=== PATIENT | female | born 2000 | race Hispanic/Latino ===

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

== ENCOUNTER 2020-08-25 21:19 | Emergency (ER) | payer OTHER ==
--- NOTE | 2020-08-25 22:38 | ULT ---
ULTRASOUND ABDOMEN LIMITED: (RIGHT UPPER QUADRANT) DATE: 08/25/2020 HISTORY: 19-year-old female with right upper quadrant abdominal pain FINDINGS: Gallbladder: Mildly contracted. 3 mm wall thickness, upper limits of normal. No gallstones or sludge identified. No pericholecystic fluid. Liver: Normal parenchymal echogenicity. Right kidney: No hydronephrosis. Pancreas: Obscured by shadowing from bowel gas. Common duct caliber: 2 mm. IMPRESSION: 1) No evidence of cholelithiasis. 2) pancreas not visualized.
[2020-08-25 22:57] LABS: #Basophils 0.1 thou/uL (0.0-0.2); #Eosinphils 0.4 thou/uL (0.0-0.7); #Lymphocytes 3.4 thou/uL (1.20-3.40); #Monocytes 0.6 thou/uL (0.11-0.59); #Neutrophils 3.7 thou/uL (1.40-6.50); %Eosinophils 4.4 % (0.0-10.0); %Lymphocytes 41.3 % (28.0-48.0); %Monocytes 7.6 % (0.0-4.0); %Neutrophils 45.7 % (31.0-61.0); Hemoglobin 12.2 g/dL (12.0-16.0); Mean Corpuscular HGB CONC 35.4 g/dL (32.0-36.0); Mean Corpuscular Hemoglobin 32.9 pg (25.0-35.0); Mean Platelet Volume 8.3 fL (7.4-10.4); Platelet Count 258 thou/uL (130-400); RBC Distribution Width 12.1 % (11.5-14.5); Red Blood Cell (RBC) Count 3.69 mill/uL (4.00-5.20); White Blood Cell (WBC) Count 8.1 thou/uL (4.8-10.8)
--- NOTE | 2020-08-25 23:03 | ULT ---
ULTRASOUND OBSTETRICAL LIMITED: DATE: 08/25/2020 HISTORY: 19-year-old female with right abdominal pain FINDINGS: number: goel lie: Vertex Maternal cervix: 4 cm. Closed. Placenta: Anterior. No placenta previa or abruptio placentae. Amniotic fluid volume: Subjectively normal heart rate: 152 bpm The following anatomy is visualized, with no evidence of anomalies: four-chamber heart, stomach, kidneys, cord insertion, bladder, cervical spine, thoracic spine, lumbar spine, sacrum, upper extremities, lower extremities,. biometry: Biparietal diameter (BPD): 4.9 cm 21 w 0 d Head circumference (HC): 17.9 cm 20 w 3 d Abdominal circumference (AC): 14.7 cm 20 w 0 d Femur length (FL): 3.5 cm 21 w 0 d Average ultrasound age (AUA): 20 w 4 d Estimated date of delivery (JOSEPH): 01/08/2021 Estimated weight (EFW): 354 g +/- 52 g IMPRESSION: 1) Live 2nd trimester intrauterine gestation. 2) Estimated gestational age of 20 weeks, 4 days 3) cephalic lie. 4) no complication identified.
[2020-08-25 23:13] LABS: Bilirubin Negative (Negative); Blood, Urine Negative (Negative); Clarity Clear (Clear); Glucose, Urine (Dipstick) Normal (Negative); Ketone, Urine Negative (Negative); Leukocyte Negative Leu/uL (Negative); Nitrite Negative (Negative); Protein, Urine (Dipstick) 20 mg/dL (Neg-Trace); Specific Gravity, Urine 1.028 (1.002-1.036); Urobilinogen Normal mg/dL (Less than 2)
[2020-08-25 23:20] LABS: ALT (SGPT) 16 U/L (8-55); AST (SGOT) 15 U/L (5-30); Albumin 3.5 g/dL (3.5-5.0); Alkaline Phosphatase 64 U/L (40-100); Anion Gap 11 mmol/L (10-20); BUN (Urea Nitrogen) 5 mg/dL (8.4-21.0); Bilirubin, Total 0.2 mg/dL (0.2-1.2); Calc. Creatinine Clearance 0 mL/min (70-130); Calcium 8.3 mg/dL (7.8-10.44); Carbon Dioxide 24 mmol/L (22-29); Chloride 107 mmol/L (98-107); Estimated GFR-MDRD Greater than 90; Glucose 93 mg/dL (70-105); Lipase 28 U/L (8-78); Potassium 3.7 mmol/L (3.5-5.1); Protein, Total 6.5 g/dL (6.0-8.3); Sodium 138 mmol/L (136-145)
== END 2020-08-25 23:55 | disposition home or self-care (01) ==
LOC: ERS 21:19
DX: O99.89 Other specified diseases and conditions complicating pregnancy, childbirth and the puerperium (principal); R10.11 Right upper quadrant pain; Z3A.20 20 weeks gestation of pregnancy
CPT/HCPCS: 36415; 76705; 76815; 80053; 81003; 83690; 85025; 87086

== ENCOUNTER 2020-09-06 09:37 | Outpatient (CLI) | payer OTHER ==
--- NOTE | 2020-09-06 12:05 | ULT ---
OB ULTRASOUND: HISTORY: anatomy. FINDINGS: A single live intrauterine gestation is seen with measurements corresponding to an estimated gestatio nal age of 22 weeks 1 day and JOSEPH at 01/09/2021. The estimated weight measures 473 gm or 1 pound and 1 ounce. Measurements: BPD 5.2 cm, 22 weeks 0 days HC 19.46 cm, 21 weeks 5 days AC 16.90 cm, 22 weeks 0 days FL 3.86 cm, 22 weeks 3 days heart rate measures 149 b.p.m. ROGERS measures 12.9 cm. Placenta is anteriorly located without e vidence of placenta previa. Cervical length measures 3.1 cm. A 3-vessel cord, cord insertion, kidneys, bladder, stomach, 4-chamber heart, lateral ventricles , cerebellum, spine, lips/nose, upper and lower extremities are visualized. No definite anomal ies are seen. IMPRESSION: Single live intrauterine of 22 weeks 1 day estimated gestational age and estimated date of delivery at 01/09/2021. POS: [facility]
== END 2020-09-06 09:38 | disposition home or self-care (01) ==
LOC: BICULT 09:37
PROVIDERS: ATTEND Family Medicine
DX: Z34.82 Encounter for supervision of other normal pregnancy, second trimester (principal); Z3A.22 22 weeks gestation of pregnancy
CPT/HCPCS: 76805

== ENCOUNTER 2021-01-05 12:44 | Outpatient (CLI) | payer OTHER ==
[2021-01-05 23:20] LABS: SARS-CoV-2 PCR by NAA Not Detected (NotDetected)
== END 2021-01-05 12:45 | disposition home or self-care (01) ==
LOC: LABBT 12:44
PROVIDERS: ATTEND Family Medicine
DX: Z20.822 Contact with and (suspected) exposure to COVID-19 (principal)
CPT/HCPCS: 87635; U0003; U0005